=== PATIENT | male | born 1930 ===

== ENCOUNTER 2017-10-24 12:54 | Emergency (ER) | payer SELFPAY ==
[~2017-10-24] VITALS: Ht 182.9 cm; Wt 84.8 kg
[2017-10-24 12:55] VITALS: Ht 182.9 cm; Wt 84.8 kg
[2017-10-24 13:41] VITALS: BP 155/71
== END 2017-10-24 13:41 | disposition home or self-care (01) ==
LOC: ED 12:54
DX: T22.012A Burn of unspecified degree of left forearm, initial encounter (principal); I10 Essential (primary) hypertension
CPT/HCPCS: J3010